=== PATIENT | female | born 1940 | race African-American/Black ===

== ENCOUNTER 2021-05-16 15:19 | Outpatient (CLI) | payer MEDICARE, OTHER, SELFPAY ==
--- NOTE | ~2021-05-16 | XR_ITS ---
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 TECHNIQUE: Frontal and lateral projections of the chest obtained and reviewed. There is no prior maricarmen dy for comparison. FINDINGS: The lungs are clear. There are no pleural effusions. The cardiomediastinal silhouette is within normal limits. There is no pneumothorax suspected. Bilateral shoulder replacements. IMPRESSION: No focal airspace disease. Reviewed, dictated and finalized at location B. IMPRESSION: No focal airspace disease.
[2021-05-16 19:24] LABS: Hepatitis B Surface Antigen Negative (Negative)
[2021-05-16 19:41] LABS: Hepatitis B Surface Anti Res Negative
== END 2021-05-16 15:20 | disposition home or self-care (01) ==
LOC: ANHIMG 15:24
PROVIDERS: Visit Provider Internal Medicine
DX: Z22.7 Latent tuberculosis (principal); Z11.59 Encounter for screening for other viral diseases
CPT/HCPCS: 36415; 71046; 86706; 87340

== ENCOUNTER 2022-09-09 14:29 | Outpatient (CLI) | payer MEDICARE, SELFPAY ==
[2022-09-09 15:00] LABS: Hematocrit 36.2 % (37.0-47.0); Hemoglobin 11.5 g/dL (12.0-15.0); Mean Corpuscular HGB Conc 31.8 g/dl (32-36); Mean Corpuscular Hemoglobin 29.9 pg (26-34); Mean Platelet Volume 10.3 fl (7.4-10.4); Platelet Count Result 208 k/mm3 (150-375); Red Blood Count 3.85 M/mm3 (4.2-5.4); Red Cell Distribution Width 13.3 % (11.5-14.5); White Blood Count 5.8 K/mm3 (4.5-10.0)
[2022-09-09 16:34] LABS: Alanine Aminotransferase 24 U/L (6-35); Alkaline Phosphatase 104 U/L (38-126); Anion Gap 8 mmol/L (8-16); Aspartate Amino Transferase 26 U/L (14-36); Bilirubin,Total 0.6 mg/dL (0.2-1.3); Blood Urea Nitrogen 16 mg/dL (7-17); CRP < 0.5 mg/dL (<1.0); Calcium 8.7 mg/dL (8.4-10.2); Carbon Dioxide 26 mmol/L (22-30); Chloride 105 mmol/L (98-107); Estimated Glomerular Filt Rate > 60; Glucose 103 mg/dL (65-110); Sodium 139 mmol/L (137-145)
[2022-09-09 17:09] LABS: Erythrocyte Sedimentation Rate 44 mm/hr (0-20)
[2022-09-09 17:39] LABS: Appearance Urine Clear (Clear); Bilirubin Urine Negative (Negative); Blood Urine Negative (Negative); Color Urine Yellow (Yellow); Glucose Urine UA Negative (Negative); Ketones Urine Negative (Negative); Leukocyte Esterase Ur Negative LEU/UL (Negative); Nitrate Urine Negative (Negative); Protein Urine Negative (Negative)
[2022-09-09 17:43] LABS: Add Urine Microscopic? NO
== END 2022-09-09 14:30 | disposition home or self-care (01) ==
PROVIDERS: Visit Provider Internal Medicine
DX: M06.09 Rheumatoid arthritis without rheumatoid factor, multiple sites (principal); M19.90 Unspecified osteoarthritis, unspecified site; M06.9 Rheumatoid arthritis, unspecified
CPT/HCPCS: 36415; 80053; 81003; 85027; 85652; 86140

== ENCOUNTER 2024-03-31 14:54 | Outpatient (CLI) | payer MEDICARE, SELFPAY ==
[2024-03-31 15:15] LABS: Hematocrit 38.3 % (37.0-47.0); Hemoglobin 12.2 g/dL (12.0-15.0); Mean Corpuscular HGB Conc 31.9 g/dl (32-36); Mean Corpuscular Hemoglobin 30.2 pg (26-34); Mean Corpuscular Volume 94.8 fl (80-100); Mean Platelet Volume 10.7 fl (7.4-10.4); Platelet Count Result 174 k/mm3 (150-375); Red Blood Count 4.04 M/mm3 (4.2-5.4); Red Cell Distribution Width 13.1 % (11.5-14.5); White Blood Count 6.5 K/mm3 (4.5-10.0)
[2024-03-31 17:29] LABS: Erythrocyte Sedimentation Rate 28 mm/hr (0-20)
[2024-03-31 17:58] LABS: Alanine Aminotransferase 25 U/L (6-35); Albumin Level 4.1 g/dL (3.5-5.1); Alkaline Phosphatase 101 U/L (38-126); Anion Gap 6 mmol/L (4-12); Aspartate Amino Transferase 39 U/L (14-36); Bilirubin,Total 0.7 mg/dL (0.2-1.3); Blood Urea Nitrogen 19 mg/dL (7-17); CRP < 0.5 mg/dL (<1.0); Calcium 8.9 mg/dL (8.4-10.2); Carbon Dioxide 25 mmol/L (22-30); Chloride 107 mmol/L (98-107); Estimated Glomerular Filt Rate > 60; Glucose 100 mg/dL (65-110); Potassium 3.9 mmol/L (3.4-5.0); Sodium 138 mmol/L (137-145)
== END 2024-03-31 14:55 | disposition home or self-care (01) ==
LOC: ANHLAB 14:57
PROVIDERS: Internal Medicine; Visit Provider Internal Medicine Hematology & Oncology
DX: M06.09 Rheumatoid arthritis without rheumatoid factor, multiple sites (principal); R89.9 Unspecified abnormal finding in specimens from other organs, systems and tissues; M19.90 Unspecified osteoarthritis, unspecified site
CPT/HCPCS: 36415; 80053; 85027; 85652; 86140